=== PATIENT | male | born 1955 | race Caucasian/White ===

== ENCOUNTER 2024-08-03 15:17 | Inpatient (IN) | payer MEDICARE ==
[~2024-08-03] VITALS: Ht 180.3 cm; Wt 98.4 kg
[2024-08-03 15:58] LABS: BASOPHILS # (AUTO) 0.1 (0.0-0.1); BASOPHILS % 1.1 % (0.0-1.0); EOSINOPHILS # (AUTO) 0.2 (0.0-0.4); HEMATOCRIT 43.2 % (38.2-49.6); HEMOGLOBIN 13.3 g/dL (14.0-18.0); LYMPHOCYTES # (AUTO) 1.9 (1.0-3.2); LYMPHOCYTES % 18.5 % (18.0-39.1); MEAN CORPUSCULAR HEMOGLOBIN 31.1 pg (28-32); MEAN CORPUSCULAR HGB CONC 30.8 g/dL (31-35); MEAN CORPUSCULAR VOLUME 100.9 fL (81-99); MONOCYTES # (AUTO) 0.6 (0.2-0.8); MONOCYTES % 6.1 % (4.4-11.3); NEUTROPHILS # (AUTO) 7.4 (2.1-6.9); NEUTROPHILS % 71.8 % (38.7-80.0); PLATELET COUNT 275 x10e3/uL (140-360); RED BLOOD COUNT 4.28 x10e6/uL (4.3-5.7); RED CELL DISTRIBUTION WIDTH 15.1 % (11.7-14.4); WHITE BLOOD COUNT 10.28 x10e3/uL (4.8-10.8)
[2024-08-03] MEDS ORDERED: LISINOPRIL 10 MG TAB PO ONE (16:00)
[2024-08-03 16:04] VITALS: TEMP 99.3
[2024-08-03 16:22] LABS: ALBUMIN 3.8 g/dL (3.5-5.0); ALBUMIN/GLOBULIN RATIO 0.9 (0.8-2.0); BILIRUBIN,TOTAL 0.8 mg/dL (0.2-1.2); CALCIUM 8.8 mg/dL (8.4-10.2); CREATININE, SERUM 1.84 mg/dL (0.72-1.25); TOTAL PROTEIN 8.2 g/dL (6.5-8.1)
[2024-08-03 16:27] LABS: TROPONIN I 0.121 ng/mL (0-0.300)
[2024-08-03] MEDS: FUROSEMIDE INJ 10 MG/ML 4 ML VIAL IV SCH (17:26)
[2024-08-03] MEDS: NIFEDIPINE CR 30 MG TAB PO SCH (17:27)
[2024-08-03] MEDS: CARVEDILOL 3.125 MG TAB PO SCH (17:27)
[2024-08-03 19:09] VITALS: PULSE 80; RESP 20; O2SAT 97
[2024-08-03] MEDS: HYDRALAZINE HCL 20 MG/ML VIAL IV PRN (19:19)
[2024-08-03 20:26] VITALS: PULSE 71; RESP 22
[2024-08-03 21:37] VITALS: BP 152/90; PULSE 71; RESP 21; TEMP 97.5; O2SAT 98
[2024-08-03 21:45] VITALS: BP 152/90; PULSE 71; RESP 21; TEMP 97.5; O2SAT 98
[2024-08-04] VITALS (11 sets, daily range): BP systolic 120–163; BP diastolic 56–81; PULSE 64–84; RESP 17–20; TEMP 97.2–97.7; O2SAT 94–100
[2024-08-04] MEDS ORDERED: POTASSIUM CHLORIDE 20 MEQ TAB CR PO PRN (00:45)
[2024-08-04] MEDS ORDERED: ACETAMINOPHEN 325 MG TAB PO PRN (00:45)
[2024-08-04] MEDS ORDERED: ONDANSETRON HCL INJ 2MG/ML 2ML 2 MG/ML VIAL IV PRN (00:45)
[2024-08-04] MEDS ORDERED: SIMETHICONE 80 MG CHEW PO PRN (00:45)
[2024-08-04] MEDS ORDERED: DEXTROSE 50% SYRINGE 50 ML IV PRN (00:45)
[2024-08-04] MEDS ORDERED: BENZONATATE 100 MG CAP PO PRN (00:45)
[2024-08-04] MEDS ORDERED: HYDRALAZINE HCL 20 MG/ML VIAL IV PRN (00:45)
[2024-08-04] MEDS ORDERED: DOCUSATE SODIUM 100 MG CAP PO PRN (00:45)
[2024-08-04] MEDS ORDERED: HYDROCODONE/APAP 5MG-325MG TAB PO PRN (00:45)
[2024-08-04] MEDS ORDERED: LIDOCAINE 4% PATCH TP PRN (00:45)
[2024-08-04] MEDS ORDERED: DIPHENHYDRAMINE HCL 25 MG CAP PO PRN (00:45)
[2024-08-04] MEDS ORDERED: MELATONIN 5 MG TABLET PO PRN (00:45)
[2024-08-04 06:35] LABS: BASOPHILS # (AUTO) 0.1 (0.0-0.1); BASOPHILS % 0.6 % (0.0-1.0); EOSINOPHILS # (AUTO) 0.3 (0.0-0.4); EOSINOPHILS % 2.6 % (0.0-6.0); HEMATOCRIT 39.9 % (38.2-49.6); HEMOGLOBIN 12.5 g/dL (14.0-18.0); LYMPHOCYTES # (AUTO) 1.9 (1.0-3.2); LYMPHOCYTES % 17.8 % (18.0-39.1); MEAN CORPUSCULAR HEMOGLOBIN 31.4 pg (28-32); MEAN CORPUSCULAR HGB CONC 31.3 g/dL (31-35); MEAN CORPUSCULAR VOLUME 100.3 fL (81-99); MONOCYTES # (AUTO) 0.8 (0.2-0.8); MONOCYTES % 7.5 % (4.4-11.3); NEUTROPHILS # (AUTO) 7.4 (2.1-6.9); NEUTROPHILS % 71.1 % (38.7-80.0); PLATELET COUNT 272 x10e3/uL (140-360); RED BLOOD COUNT 3.98 x10e6/uL (4.3-5.7); RED CELL DISTRIBUTION WIDTH 14.8 % (11.7-14.4); WHITE BLOOD COUNT 10.37 x10e3/uL (4.8-10.8)
[2024-08-04 06:48] LABS: ANION GAP 16.6 mmol/L (8-16); CALCIUM 8.7 mg/dL (8.4-10.2); CREATININE, SERUM 1.85 mg/dL (0.72-1.25); POTASSIUM 3.6 mmol/L (3.5-5.1)
[2024-08-04 07:04] LABS: CHOL/HDL RATIO 4.8 (3.9-4.7); MAGNESIUM 1.9 MG/DL (1.3-2.1); PHOSPHORUS 4.1 MG/DL (2.3-4.7)
[2024-08-04 07:26] LABS: THYROID STIMULATING HORMONE 1.964 uIU/mL (0.350-4.940)
[2024-08-04] MEDS: PANTOPRAZOLE SOD 40 MG TABEC PO SCH (08:31)
[2024-08-04] MEDS ORDERED: CARVEDILOL 10 MG CAPCR PO SCH (09:00)
[2024-08-04] MEDS ORDERED: CARVEDILOL 12.5 MG TAB PO SCH (09:00)
[2024-08-04] MEDS: TRIAMTERENE/HCTZ 37.5-25 MG TAB PO SCH (09:26)
[2024-08-04] MEDS: CARVEDILOL 3.125 MG TAB PO ONE (09:27)
[2024-08-04] MEDS: FUROSEMIDE INJ 10 MG/ML 4 ML VIAL IV SCH (14:59)
[2024-08-04] MEDS: CARVEDILOL 12.5 MG TAB PO SCH (17:00)
[2024-08-04] MEDS: ENOXAPARIN SOD INJ 40 MG/0.4 ML SYR SC SCH (17:06)
[2024-08-05] VITALS (12 sets, daily range): BP systolic 115–156; BP diastolic 53–88; PULSE 59–77; RESP 16–22; TEMP 97.5–98.1; O2SAT 95–100
[2024-08-05] MEDS: ALBUTEROL/IPRATROPIUM 3 ML NEB NEB PRN (00:49)
[2024-08-05 06:14] LABS: BASOPHILS # (AUTO) 0.1 (0.0-0.1); BASOPHILS % 0.7 % (0.0-1.0); EOSINOPHILS # (AUTO) 0.3 (0.0-0.4); HEMATOCRIT 40.9 % (38.2-49.6); HEMOGLOBIN 12.7 g/dL (14.0-18.0); LYMPHOCYTES % 20.5 % (18.0-39.1); MEAN CORPUSCULAR HEMOGLOBIN 31.1 pg (28-32); MEAN CORPUSCULAR HGB CONC 31.1 g/dL (31-35); MEAN CORPUSCULAR VOLUME 100.2 fL (81-99); MONOCYTES # (AUTO) 0.8 (0.2-0.8); MONOCYTES % 8.6 % (4.4-11.3); NEUTROPHILS # (AUTO) 6.4 (2.1-6.9); NEUTROPHILS % 66.7 % (38.7-80.0); PLATELET COUNT 285 x10e3/uL (140-360); RED BLOOD COUNT 4.08 x10e6/uL (4.3-5.7); RED CELL DISTRIBUTION WIDTH 14.6 % (11.7-14.4); WHITE BLOOD COUNT 9.56 x10e3/uL (4.8-10.8)
[2024-08-05 06:45] LABS: ANION GAP 17.4 mmol/L (8-16); CREATININE, SERUM 2.57 mg/dL (0.72-1.25); POTASSIUM 4.4 mmol/L (3.5-5.1)
[2024-08-05] MEDS: NIFEDIPINE CR 30 MG TAB PO SCH (11:49)
[2024-08-05] MEDS: SODIUM BICARBONATE 650 MG TAB PO SCH (18:02)
[2024-08-06] VITALS (11 sets, daily range): BP systolic 125–151; BP diastolic 66–84; PULSE 60–78; RESP 17–22; TEMP 97.5–98.1; O2SAT 95–100
[2024-08-06 06:46] LABS: BASOPHILS # (AUTO) 0.1 (0.0-0.1); BASOPHILS % 0.7 % (0.0-1.0); EOSINOPHILS # (AUTO) 0.2 (0.0-0.4); EOSINOPHILS % 2.6 % (0.0-6.0); HEMATOCRIT 39.8 % (38.2-49.6); HEMOGLOBIN 12.6 g/dL (14.0-18.0); LYMPHOCYTES # (AUTO) 1.7 (1.0-3.2); LYMPHOCYTES % 19.3 % (18.0-39.1); MEAN CORPUSCULAR HEMOGLOBIN 31.7 pg (28-32); MEAN CORPUSCULAR HGB CONC 31.7 g/dL (31-35); MONOCYTES # (AUTO) 0.8 (0.2-0.8); MONOCYTES % 9.3 % (4.4-11.3); NEUTROPHILS # (AUTO) 5.9 (2.1-6.9); NEUTROPHILS % 67.8 % (38.7-80.0); PLATELET COUNT 272 x10e3/uL (140-360); RED BLOOD COUNT 3.98 x10e6/uL (4.3-5.7); RED CELL DISTRIBUTION WIDTH 14.4 % (11.7-14.4); WHITE BLOOD COUNT 8.72 x10e3/uL (4.8-10.8)
[2024-08-06 07:16] LABS: ANION GAP 18.1 mmol/L (8-16); CALCIUM 8.5 mg/dL (8.4-10.2); CREATININE, SERUM 2.51 mg/dL (0.72-1.25); POTASSIUM 4.1 mmol/L (3.5-5.1)
[2024-08-06] MEDS: SODIUM CHLORIDE 0.9% 500ML 500 ML IV SCH (15:56)
[2024-08-06] MEDS: SODIUM BICARBONATE 8.4% INJ 50 ML SYR IV ONE (15:56)
[2024-08-07] VITALS (10 sets, daily range): BP systolic 115–150; BP diastolic 62–83; PULSE 59–70; RESP 18–21; TEMP 97.4–99.8; O2SAT 94–99
[2024-08-07 05:32] LABS: BASOPHILS # (AUTO) 0.1 (0.0-0.1); BASOPHILS % 0.9 % (0.0-1.0); EOSINOPHILS # (AUTO) 0.2 (0.0-0.4); EOSINOPHILS % 2.4 % (0.0-6.0); HEMATOCRIT 40.7 % (38.2-49.6); HEMOGLOBIN 12.8 g/dL (14.0-18.0); LYMPHOCYTES # (AUTO) 1.6 (1.0-3.2); LYMPHOCYTES % 21.2 % (18.0-39.1); MEAN CORPUSCULAR HGB CONC 31.4 g/dL (31-35); MEAN CORPUSCULAR VOLUME 98.5 fL (81-99); MONOCYTES # (AUTO) 0.9 (0.2-0.8); MONOCYTES % 11.1 % (4.4-11.3); NEUTROPHILS # (AUTO) 4.9 (2.1-6.9); PLATELET COUNT 272 x10e3/uL (140-360); RED BLOOD COUNT 4.13 x10e6/uL (4.3-5.7); RED CELL DISTRIBUTION WIDTH 14.5 % (11.7-14.4); WHITE BLOOD COUNT 7.65 x10e3/uL (4.8-10.8)
[2024-08-07 06:00] LABS: BACTERIA,URINE FEW /HPF; BILIRUBIN,URINE NEGATIVE (NEGATIVE); CLARITY,URINE CLEAR (CLEAR); COLOR,URINE YELLOW (YELLOW); EPITHELIAL CELLS,URINE FEW /LPF; GLUCOSE, URINE NEGATIVE (NEGATIVE); KETONES,URINE NEGATIVE (NEGATIVE); LEUKOCYTE ESTERASE ,URINE NEGATIVE (NEGATIVE); NITRITE,URINE NEGATIVE (NEGATIVE); PH,URINE 7 (5 - 7); PROTEIN,URINE DIPSTICK 1+ (NEGATIVE); RBC,URINE 0-5 /HPF (0-5); URINE UROBILINOGEN 0.2 mg/dL (0.2 - 1); WBC,URINE (MAN) 0-5 /HPF (0-5)
[2024-08-07 06:11] LABS: ANION GAP 17.1 mmol/L (8-16); CALCIUM 8.6 mg/dL (8.4-10.2); CREATININE, SERUM 2.76 mg/dL (0.72-1.25); POTASSIUM 4.1 mmol/L (3.5-5.1)
[2024-08-07] MEDS: SODIUM CHLORIDE 0.9% 1000ML 1,000 ML IV SCH (09:55)
[2024-08-07] MEDS: SODIUM CHLORIDE 0.9% 1000ML 500 ML IV ONE (09:57)
[2024-08-07] MEDS ORDERED: FUROSEMIDE INJ 10 MG/ML 2 ML VIAL IV ONE (14:45)
[2024-08-07] MEDS: FUROSEMIDE INJ 10 MG/ML 4 ML VIAL IV ONE (16:10)
[2024-08-07] MEDS: SODIUM BICARBONATE 650 MG TAB PO SCH (16:11)
[2024-08-07 18:14] LABS: ANION GAP 17.5 mmol/L (8-16); CALCIUM 8.8 mg/dL (8.4-10.2); CREATININE, SERUM 3.1 mg/dL (0.72-1.25); POTASSIUM 4.5 mmol/L (3.5-5.1)
[2024-08-08 00:55] VITALS: BP 142/80; PULSE 64; RESP 17; TEMP 97.8; O2SAT 98
[2024-08-08 03:22] VITALS: BP 142/80; PULSE 64; RESP 17; TEMP 97.8; O2SAT 98
[2024-08-08 04:00] VITALS: BP 136/74; PULSE 63; RESP 17; TEMP 97.7; O2SAT 98
[2024-08-08 08:06] VITALS: BP 142/66; PULSE 61; RESP 19; TEMP 97.6; O2SAT 95
[2024-08-08 09:32] LABS: ANION GAP 17.4 mmol/L (8-16); CALCIUM 9.1 mg/dL (8.4-10.2); CREATININE, SERUM 2.92 mg/dL (0.72-1.25); POTASSIUM 4.4 mmol/L (3.5-5.1)
[2024-08-08 12:02] VITALS: BP 130/72; PULSE 57; RESP 18; TEMP 98.1; O2SAT 95
[2024-08-08] MEDS: LOPERAMIDE HCL 2 MG CAP PO ONE (15:07)
== END 2024-08-08 16:27 | disposition home or self-care (01) | DRG 291 ==
LOC: ER 15:50 → ERHOLD 17:01 → MED/SURG3 21:13
PROVIDERS: ADMIT Internal Medicine; ATTEND Internal Medicine
PROC: 02HV33Z Insertion of Infusion Device into Superior Vena Cava, Percutaneous Approach (ICD-10-PCS; principal; 2024-08-07)
DX: I13.0 Hypertensive heart and chronic kidney disease with heart failure and stage 1 through stage 4 chronic kidney disease, or unspecified chronic kidney disease (principal); I50.33 Acute on chronic diastolic (congestive) heart failure; J96.01 Acute respiratory failure with hypoxia; N17.9 Acute kidney failure, unspecified; J90 Pleural effusion, not elsewhere classified; I16.0 Hypertensive urgency; N18.30 Chronic kidney disease, stage 3 unspecified; E66.01 Morbid (severe) obesity due to excess calories; Z68.30 Body mass index [BMI] 30.0-30.9, adult; Z82.49 Family history of ischemic heart disease and other diseases of the circulatory system
CPT/HCPCS: 36415; 71045; 71250; 74470; 76604; 76770; 80048; 80053; 80061; 81001; 83036; 83735; 83880; 84100; 84443; 84484; 85025; 93005; 93306; 94799; 99284; J0360; J1650; J1940; J7040